=== PATIENT | male | born 1990 | race Caucasian/White ===

== ENCOUNTER 2016-11-22 21:14 | Emergency (ER) | payer SELFPAY ==
--- NOTE | ~2016-11-22 | ER ---
PATIENT'S NAME: [facility] AGE: 26 Y [address] ROOM: [place] [address] LOCATION: [facility] ADMIT DATE: 11/22/2016 ER/Outpatient Report DISCHARGE DATE: 11/22/2016 FAMILY PHYSICIAN: PHYSICIAN, NO ATTENDING PHYSICIAN: Adrian Bahena Time of Arrival: 2121 hours. Time of evaluation: 2126 hours. CHIEF COMPLAINT: Left knee pain. HISTORY OF PRESENT ILLNESS: The patient is a 26-year-old male, who presents to the emergency department today with a chief complaint of left knee pain. He reports that occurred 5 hours prior to arrival. The patient is a [place]ic-speaking. Martti is used for discussion. The patient denies any numbness or tingling. It is sharp. It is worse with movement. It is currently 6/10 in severity. He is able to bear weight. PAST MEDICAL HISTORY: None. PAST SURGICAL HISTORY: None. SOCIAL HISTORY: The patient smokes a 3rd of a pack a day. Denies any alcohol or illicit drug use. ALLERGIES: NO KNOWN DRUG ALLERGIES. MEDICATIONS: None. PRIMARY CARE DOCTOR: None. REVIEW OF SYSTEMS: All systems are reviewed by myself and are negative with the exception of those discussed in the HPI and past medical history. PHYSICAL EXAMINATION: VITAL SIGNS: Weight 84.3 kg, blood pressure 166/92, pulse 98, respiratory PATIENT'S NAME: [facility] AGE: 26 Y [address] ROOM: [place] [address] LOCATION: [facility] ADMIT DATE: 11/22/2016 ER/Outpatient Report DISCHARGE DATE: 11/22/2016 FAMILY PHYSICIAN: PHYSICIAN, NO ATTENDING PHYSICIAN: Adrian Bahena rate 16, temperature 98, and oxygen saturation 100% on room air. GENERAL: The patient is a 26-year-old male, who appears stated age, well developed, well nourished. HEENT: Normocephalic, atraumatic. Pupils are equal, round, and reactive to light and accommodation. Extraocular motions are intact. Nares are patent bilaterally. TMs are clear. Oropharynx is clear. NECK: Supple. There is no nuchal rigidity. CARDIOVASCULAR: Regular rate and rhythm. No murmurs, rubs, or gallops. LUNGS: Clear to auscultation bilaterally. No wheezes, rales, or rhonchi. ABDOMEN: Soft, nontender, and nondistended. No rebound, rigidity, or guarding. MUSCULOSKELETAL: The patient has a left knee tenderness to palpation. It is on the lateral aspect, 2/4 pulses, DP and PT. SKIN: Warm and dry. LABORATORY DATA AND X-RAYS: X-ray of the left knee is obtained and is interpreted by myself. There is a questionable avulsion fracture noted of the epicondyle of the left femur. IMPRESSION: 1. Questionable acute closed left epicondyle fracture, left femur, distal. 2. Initial visit. EMERGENCY DEPARTMENT COURSE: The patient was brought back to the examination room. Seen and evaluated by myself. X-rays are obtained as described above. I am unsure as to whether this is benign area on the xray, but the patient has point tenderness to this are. I have discussed the results with the patient using [employer] system. I have placed the patient in a knee immobilizer. The patient is placed on crutches. I have asked he follows up with Dr. Perry in 7 to 10 days for re-evaluation. I have discussed return to care instructions including worsening symptoms or any other concerns to return to the emergency department as soon as possible. The patient is agreeable and is agreeable without further questions at this time. DISPOSITION: The patient discharged to home with a prescription for Camargo. DO ARJUN MANZANARES/gui /[id number] d: 11/23/16 0050 t: 11/23/161941, OUTPATIENT REPORT
== END 2016-11-22 22:09 | disposition disaster alternative care site (69) ==
LOC: GACC 21:14
DX: M25.562 Pain in left knee (principal); F17.210 Nicotine dependence, cigarettes, uncomplicated